=== PATIENT | male | born 1955 | race Caucasian/White ===

== ENCOUNTER → 2016-10-28 | Outpatient (CLI) | payer BC ==
[2016-10-28 15:16] LABS: CHLORIDE,CL 105 mmol/L (98-110); SODIUM,NA 138 mmol/L (136-146)
--- NOTE | 2016-10-28 16:46 | CR ---
EXAMINATION: Cervical and thoracic spine HISTORY: Hyperostosis COMPARISON: CT dated 05/01/2015 TECHNIQUE: AP and lateral views. FINDINGS: The cervical spinal alignment appears grossly normal. The vertebral body heights appear maintained. Flowing syndesmophytes are noted from before to C6. Facet alignment is preserved. No fracture or acu te osseous abnormality. The prevertebral soft tissues are normal. There is a trace dextrocurvature of the thoracic spine. The vertebral body heights appear grossly ma intained. Flowing syndesmophytes are noted throughout the thoracic spine. Acute osseous abnormalitie s. Bone mineralization appears normal. IMPRESSION: 1. Flowing syndesmophytes noted throughout the cervical and thoracic spine likely representing diffu se idiopathic skeletal hyperostosis. 2. No acute findings.
== END ==
LOC: MW.CHIM 14:30
PROVIDERS: ATTEND Internal Medicine
DX: K21.9 Gastro-esophageal reflux disease without esophagitis (principal); I10 Essential (primary) hypertension; M48.10 Ankylosing hyperostosis [Forestier], site unspecified; R13.10 Dysphagia, unspecified
CPT/HCPCS: 36415; 72040; 72070; 80053; 80061; 83036; 84439; 84443; 85025; 85652; 86140; G0103

== ENCOUNTER 2017-03-02 09:08 | Day surgery (SDC) | payer BC ==
[~2017-03-02 09:08] MED LIST: Lactated Ringers 1,000 ML IV SCH
--- NOTE | 2017-03-02 09:55 | PCM.PREANE ---
Preanesthetic Assessment - Anesthesia/Transfusion/Family Hx Anesthesia History: Prior Anesthesia Without Reaction Family History of Anesthesia Reaction: No Transfusion History: No Prior Transfusion(s) Intubation History: Unknown - Review of Systems General: No Symptoms Pulmonary: No Symptoms Cardiovascular: No Symptoms Gastrointestinal: Difficulty swallowing Neurological: No Symptoms Other: Reports: None - Physical Assessment Height: 1.83 m Weight: 92.986 kg ASA Class: 2 Mental Status: Alert & Oriented x3 Airway Class: Mallampati = 2 Dentition: Reports: [place](s) (multiple upper front) Thyro-Mental Finger Breadths: 3 Mouth Opening Finger Breadths: 3 ROM/Head Extension: Limited/Partial Lungs: Clear to auscultation, Normal respiratory effort Cardiovascular: Regular Rate, Regular Rhythm - Allergies Allergies/Adverse Reactions: Allergies Allergy/AdvReac Type Severity Reaction Status Date / Time No Known Allergies Allergy Verified 02/23/17 10:50 - Blood Blood Available: No - Anesthesia Plan Pre-Op Medication Ordered: None - Acknowledgements Anesthesia Type Planned: MAC Pt an Appropriate Candidate for the Planned Anesthesia: Yes Alternatives and Risks of Anesthesia Discussed w Pt/Guardian: Yes Pt/Guardian Understands and Agrees with Anesthesia Plan: Yes PreAnesthesia Questionnaire HEENT History: Reports: Other (See Below) Other HEENT History: wears glasses for reading and driving Cardiovascular History: Reports: Hypertension Gastrointestinal History: Reports: GERD (some dysphagia) Musculoskeletal History: Reports: Gout, Other (See Below) Other Musculoskeletal History: DISH (diffuse idiopathic skeletal hyperostosis), Kyphosis Endocrine/Metabolic History: Reports: Diabetes, Type II - Past Surgical History Head Surgeries/Procedures: Reports: None GI Surgical History: Reports: Colonoscopy () - SUBSTANCE USE Smoking Status *Q: Never Smoker Recreational Drug Use History: No - HOME MEDS Home Medications: Home Meds Aspirin [[place] Aspirin] 81 mg PO DAILY 02/23/17 [History] Losartan Potassium 100 mg PO DAILY 02/23/17 [History] amLODIPine Besylate [Amlodipine Besylate] 10 mg PO DAILY 02/23/17 [History] - CURRENT (IN HOUSE) MEDS Current Meds: Current Medications Lactated Ringer's (Ringers, Lactated) 1,000 mls @ 125 mls/hr IV ASDIRECTED [facility] Last Admin: 03/02/17 09:38 Dose: 125 mls/hr
[2017-03-02] MEDS ORDERED: Midazolam 1 MG/ML 2 ML SDV ONE (10:28)
[2017-03-02] MEDS ORDERED: Lidocaine 2% 5 ML SDV ONE (10:28)
[2017-03-02] MEDS ORDERED: fentaNYL 100 MCG/2 ML SDV ONE (10:28)
[2017-03-02] MEDS ORDERED: Propofol 200 MG/20 ML SDV ONE (10:28)
[2017-03-02] MEDS ORDERED: Lactated Ringers 1,000 ML IV SCH (11:00)
--- NOTE | 2017-03-02 11:03 | PCM.OPNOTE ---
- General Post-Op/Procedure Note Date of Surgery/Procedure: 03/02/17 Operative Procedure(s): Colonoscopy Pre Op Diagnosis: Family history of colon cancer Post-Op Diagnosis: No evidence of neoplasia Anesthesia Technique: MAC (ASA II) Primary Surgeon: Raul Jacobs Condition: Good Free Text/Narrative:: Dictation [id number] CPT CODE 56454
[2017-03-02 11:30] VITALS: BP 124/70
--- NOTE | 2017-03-03 06:06 | OR ---
SURGEON: Raul Jacobs M.D. DATE OF PROCEDURE: 03/02/2017 OPERATION PERFORMED: Colonoscopy. ANESTHESIA: MAC. ASA CLASSIFICATION: II. PREOPERATIVE DIAGNOSIS: Family history of colon cancer, desire for colorectal cancer screening. POSTOPERATIVE DIAGNOSIS: No evidence of neoplasia. DESCRIPTION OF PROCEDURE: The patient was taken to the endoscopy room and positioned on the endoscopy table in the left lateral decubitus position. Time-out was called for appropriate identification of the patient and procedure. Monitored anesthesia care was provided. The colonoscope was inserted into the rectum and advanced without difficulty to the cecum where the colonoscope was retroflexed to visualize the ascending colon from below. The cecum had been identified by internal landmarks and external pressure. After retroflexing the colonoscope, the colonoscope was straightened and slowly withdrawn. The cecum, ascending colon, hepatic flexure, transverse colon, splenic flexure, descending colon, sigmoid colon, and rectum were very well visualized. There were no tumors, polyps, diverticula, or angiodysplastic changes. There was no evidence of inflammatory bowel disease. Once the colonoscope was withdrawn to the rectum, it was retroflexed to visualize the anal orifice from above. No tumors, polyps, or acute hemorrhoidal changes were noted. The colonoscope was then straightened, the rectum aspirated, and the colonoscope removed. The patient tolerated the procedure well and was taken to recovery room in stable condition. STEPH CAVAZOS /[id number]
== END 2017-03-02 11:50 | disposition home or self-care (01) ==
LOC: MW.SDS 09:08
PROVIDERS: ATTEND Surgery
PROC: 0DJD8ZZ Inspection of Lower Intestinal Tract, Via Natural or Artificial Opening Endoscopic (ICD-10-PCS; principal; 2017-03-02)
DX: Z12.11 Encounter for screening for malignant neoplasm of colon (principal); K21.9 Gastro-esophageal reflux disease without esophagitis; I10 Essential (primary) hypertension; M40.00 Postural kyphosis, site unspecified; M10.9 Gout, unspecified; E11.9 Type 2 diabetes mellitus without complications; Z79.82 Long term (current) use of aspirin; Z79.899 Other long term (current) drug therapy; Z98.890 Other specified postprocedural states
CPT/HCPCS: 45378; 82962; J2250; J3010; J7120; J2704